=== PATIENT | male | born 1945 ===

== ENCOUNTER 2017-10-03 10:33 | Day surgery (SDC) | payer MEDICARE ==
[2017-09-25 08:11] VITALS: BMI 26.5
[2017-10-03] MEDS ORDERED: ceFAZolin 1 gm in NS 1 GM/100 ML BAG IVPB ONE (13:15)
[2017-10-03] MEDS ORDERED: Propofol 10 mg/ml Inj (20 ML) ONE (13:17)
[2017-10-03] MEDS ORDERED: Lidocaine/Epinephrine 1% 1:100000 10 ML IJ ONE ×2 (13:42→13:55)
[2017-10-03] MEDS ORDERED: Midazolam 2 MG/2 ML VIAL ONE (13:51)
[2017-10-03] MEDS ORDERED: HYDROmorphone 0.5 mg/0.5 ml ISec IVP PRN (15:13)
--- NOTE | 2017-10-03 15:15 | PCM.SURG1 ---
Surgeon's Initial Post Op Note - Surgeon's Notes Surgeon: Dr. Kumar Lock Up Worker: Dr. Perez PGY2 Type of Anesthesia: General Endo Pre-Operative Diagnosis: Chest and Back Sebaceous Cyst Operative Findings: See operative dictation Post-Operative Diagnosis: Back and chest sebaceous cyst Operation Performed: Exscision of chest and back sebaceous cysts Specimen/Specimens Removed: Sebaceous cysts X 2 Estimated Blood Loss: EBL {In ML}: 5 Blood Products Given: N/A Drains Used: No Drains Post-Op Condition: Good Date of Surgery/Procedure: 10/03/17 Time of Surgery/Procedure: 15:15
[2017-10-03 16:46] VITALS: BP 127/64; PULSE 60; RESP 20; TEMP 97.7; O2SAT 97
--- NOTE | 2017-10-06 20:45 | OP ---
PROCEDURE DATE: 10/03/2017 SURGEON: Hao Kumar MD CRYSTALLOGRAPHER: Dr. Perez. ANESTHESIA: Local with IV sedation. PREOPERATIVE DIAGNOSIS: Sebaceous cyst, chest and back. POSTOPERATIVE DIAGNOSIS: Sebaceous cyst, chest and back. PROCEDURE: Excision of sebaceous cyst back, excision of sebaceous cyst chest. DESCRIPTION OF PROCEDURE: The patient received IV sedation and was positioned prone on the operating table. The upper back was prepped and draped in the usual sterile manner. Near the mid upper back, there was a 2 inch rounded mass, which was slightly darker in color with a central punctum. There was no obvious surrounding erythema. The skin surrounding the punctum was infiltrated with 1% lidocaine with epinephrine, and an elliptical incision was made surrounding the punctum. Skin flaps were raised above and below, but had the gross appearance of a large sebaceous cyst, and the cyst was sharply dissected free of the surrounding subcutaneous tissue down to the muscle fascia. The surrounding tissue was markedly thickened, consistent with previous inflammation or the patient's history of previous surgical treatment. The operative site was examined for hemostasis and the cyst was removed along with the attached overlying ellipse of the skin. Closure was performed with a single 3-0 Vicryl suture to approximate the subcutaneous tissue and 4-0 Monocryl subcuticular sutures and Steri-Strips. A dry sterile dressing was applied. The patient was then placed in the supine position and an 1.5 inch cyst was noted near the head of the left clavicle, and the skin surrounding this was infiltrated with 1% lidocaine with epinephrine and an elliptical incision was made down to what appeared to be a sebaceous cyst. Using gentle traction on the skin ellipse, the cyst was more easily dissected free off the surrounding subcutaneous tissue and completely excised. The site was examined for hemostasis. Single small bleeder was cauterized, and closure was performed with running subcuticular suture of 4-0 Monocryl and Steri-Strips. Dry sterile dressings were applied. The patient tolerated the procedure well and transferred to the recovery room in stable condition. Estimated blood loss for the procedure was 5 mL. Hao Kumar MD
== END 2017-10-03 16:40 | disposition home or self-care (01) ==
LOC: C.SDS 10:33
PROVIDERS: ATTEND Specialist
DX: L72.3 Sebaceous cyst (principal); I10 Essential (primary) hypertension; E11.9 Type 2 diabetes mellitus without complications; E78.5 Hyperlipidemia, unspecified
CPT/HCPCS: 11402; 11403; 82948; 88304; J0690; J2001; J2250; J2405; J2704; J3010

== ENCOUNTER 2018-06-15 18:25 | Emergency (ER) | payer MEDICARE ==
[2018-06-15 18:25] VITALS: BMI 26.5
--- NOTE | 2018-06-15 19:54 | C.PDOC ---
History Of Present Illness Patient is a 72 year old male who presents to the ED c/o urinary retention after having a 5 day old todd catheter removed at 11:30am. Patient is also c/o suprapubic and abdominal pressure, which he has been unable to void. Time Seen by Provider: 06/15/18 19:54 Chief Complaint (Nursing): Male Genitourinary History Per: Patient History/Exam Limitations: no limitations Onset/Duration Of Symptoms: Hrs (morning) Current Symptoms Are (Timing): Still Present Quality Of Discomfort: Pressure (suprapubic and abdominal ) Associated Symptoms: Urinary Symptoms (urinary retention ) Recent travel outside of the [employer] [place]: No Additional History Per: Patient Past Medical History Reviewed: Historical Data, Nursing Documentation, Vital Signs Vital Signs: Last Vital Signs Temp 98.2 F 06/15/18 19:13 Pulse 87 06/15/18 19:13 Resp 20 06/15/18 19:13 BP 111/70 06/15/18 19:13 Pulse Ox 98 06/15/18 19:13 - Medical History PMH: Colonic Polyps, Diabetes, HTN, Hypercholesterolemia Denies: Chronic Kidney Disease - [facility] Procedures CLOSURE SKIN & SUBCUTANEOUS NEC (04/24/14) TETANUS TOXOID ADMINIST (04/24/14) Family History: States: No Known Family Hx - Social History Hx Tobacco Use: No Hx Alcohol Use: No Hx Substance Use: No - Immunization History Hx Tetanus Toxoid Vaccination: No Hx Influenza Vaccination: Yes Hx Pneumococcal Vaccination: No Review Of Systems Gastrointestinal: Positive for: Abdominal Pain (suprapubic and abdominal pressure ) Genitourinary: Positive for: Other (urinary retention) Physical Exam - Physical Exam Appears: Non-toxic, No Acute Distress Skin: Warm, Dry Head: Normacephalic Eye(s): bilateral: Normal Inspection, PERRL, EOMI Gastrointestinal/Abdominal: Soft, Tenderness (suprapubic ), Other (distended bladder to palpation) Neurological/Psych: Oriented x3 ED Course And Treatment O2 Sat by Pulse Oximetry: 98 (on RA) Pulse Ox Interpretation: Normal Progress Note: Plan: 18 bangladeshi todd catheter inserted without difficulty. 550-600cc clear urine drained. Patient with instant relief. Disposition Counseled Patient/Family Regarding: Studies Performed, Diagnosis, Need For F ollowup - Disposition Disposition: HOME/ ROUTINE Disposition Time: 19:54 Condition: FAIR Additional Instructions: Please follow up with your urologist Instructions: How to Care for Your Todd Catheter, Male, Urinary Retention (DC) Forms: [facility] (Mongolian) Print Language: UGANDAN - Clinical Impression Clinical Impression: Urinary retention - Scribe Statement The provider has reviewed the documentation as recorded by the Stanislavibfitz Romero All medical record entries made by the Osvaldo were at my direction and pe rsonally dictated by me. I have reviewed the chart and agree that the record accurately reflects my personal performance of the history, physical exam, medical decision making, and the department course for this patient. I have also personally directed, reviewed, and agree with the discharge instructions and disposition.
[2018-06-15 20:30] VITALS: BP 122/71; PULSE 69; RESP 16; TEMP 98; O2SAT 97
== END 2018-06-15 20:31 | disposition home or self-care (01) ==
LOC: C.ER 18:25
DX: R33.9 Retention of urine, unspecified (principal)